=== PATIENT | female | born 1965 | race Hispanic/Latino ===

== ENCOUNTER 2018-05-13 17:23 | Emergency (ER) | payer MEDICAID, SELFPAY ==
--- NOTE | 2018-05-13 18:06 | RAD ---
LEFT KNEE FOUR VIEWS: 05/13/18 INDICATION: Posttraumatic pain. FINDINGS: There is soft tissue abnormality of the lateral aspect of the left knee. There is moderate joint caps ular distention. Mild cortical irregularity involves the posterior aspect of the distal femoral metap hyseal region not reliably depicted on the frontal projection. IMPRESSION: Soft tissue contusion, moderate joint capsular distention, and subtle cortical irregularity at the po sterior metaphyseal region of the distal femur indicative of posttraumatic sequela. POS: [facility]
--- NOTE | 2018-05-13 18:09 | RAD ---
RIGHT ANKLE THREE VIEWS: 05/13/18 INDICATION: Posttraumatic pain. FINDINGS: There is a minimally displaced medial malleolar fracture. Posterior malleolar fracture also seen. The re is soft tissue swelling greatest medially. Slight widening of the medial ankle mortise is present. IMPRESSION: Medial malleolar and posterior malleolar fractures with associated soft tissue swelling, and slight a symmetric widening of the medial ankle mortise. Recommend orthopedic consultation. POS: [facility]
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
== END 2018-05-13 19:05 | disposition home or self-care (01) ==
LOC: ERS 17:23
DX: S82.51XA Displaced fracture of medial malleolus of right tibia, initial encounter for closed fracture (principal); S86.912A Strain of unspecified muscle(s) and tendon(s) at lower leg level, left leg, initial encounter; S20.212A Contusion of left front wall of thorax, initial encounter; V43.52XA Car driver injured in collision with other type car in traffic accident, initial encounter
CPT/HCPCS: 71045; G0390

== ENCOUNTER 2020-04-24 06:20 | Inpatient (IN) | payer OTHER, SELFPAY ==
[2020-04-24 06:59] LABS: #Basophils 0.1 thou/uL (0.0-0.2); #Eosinphils 0.4 thou/uL (0.0-0.7); #Lymphocytes 2.8 thou/uL (1.20-3.40); #Monocytes 0.5 thou/uL (0.11-0.59); #Neutrophils 11.7 thou/uL (1.40-6.50); %Basophils 0.4 % (0.0-1.0); %Eosinophils 2.3 % (0.0-10.0); %Lymphocytes 17.9 % (21.0-51.0); %Monocytes 3.3 % (0.0-10.0); %Neutrophils 76.2 % (42.0-75.0); Hemoglobin 11.1 g/dL (12.0-16.0); Mean Corpuscular Hemoglobin 26.8 pg (27.0-31.0); Mean Corpuscular Volume 89.4 fL (78.0-98.0); Mean Platelet Volume 9.4 fL (7.4-10.4); Platelet Count 411 thou/uL (130-400); RBC Distribution Width 13.7 % (11.5-14.5); Red Blood Cell (RBC) Count 4.15 mill/uL (4.20-5.40); White Blood Cell (WBC) Count 15.4 thou/uL (4.8-10.8)
[2020-04-24 07:13] LABS: Actual Bicarbonate (HCO3a) 28.6 mEq/L (22-28); Analyzer IN Cardio ER; Base Excess (BEa) 4.6 mEq/L (-2.0 to +3.0); CO2 Tension 40.3 mmHg (35.0-45.0); Calcium, Ionized (arterial) 1.08 mmol/L (1.12-1.30); Carboxyhemoglobin (COHb) 0.5 gm% (0.0-3.0); Hemoglobin (Hb) 11.4 g/dL (12.0-16.0); O2 Tension (PaO2), arterial 89.2 mmHg (80.0-100.0); Potassium - ABG Lab 2.97 mmol/L (3.70-5.30); pH, Arterial 7.47 (7.35-7.45)
[2020-04-24 07:20] LABS: ALV-art Gradient 573.425 (0-20); Puncture Site LRA3
[2020-04-24 07:21] LABS: ALT (SGPT) 62 U/L (8-55); AST (SGOT) 69 U/L (5-34); Albumin 3.5 g/dL (3.5-5.0); Alkaline Phosphatase 178 U/L (40-110); Anion Gap 13 mmol/L (10-20); BUN (Urea Nitrogen) 14 mg/dL (9.8-20.1); Bilirubin, Total 0.9 mg/dL (0.2-1.2); Calc. Creatinine Clearance 0 mL/min (70-130); Carbon Dioxide 33 mmol/L (22-29); Chloride 96 mmol/L (98-107); Estimated GFR-MDRD 43; Globulin 4.3 g/dL (2.4-3.5); Glucose 128 mg/dL (70-105); Potassium 3.1 mmol/L (3.5-5.1); Protein, Total 7.8 g/dL (6.0-8.3); Sodium 139 mmol/L (136-145)
[2020-04-24 07:34] LABS: Platelet Morphology Comment Appears Increased; RBC Morphology Normal
--- NOTE | 2020-04-24 07:34 | RAD ---
EXAM: Single view of the chest HISTORY: Covid pneumonia COMPARISON: 05/13/2018 FINDINGS: Single view of the chest shows a normal sized cardiomediastinal silhouette. There are multi focal peripheral infiltrates in the lungs. No pleural effusion is seen. The bones are unremarkable IMPRESSION: Multifocal infiltrates are consistent with Covid pneumonia.
[2020-04-24] MEDS ORDERED: Potassium Chloride 20 MEQ TAB ONE (07:41)
[2020-04-24] MEDS ORDERED: Azithromycin 500 MG VIAL ONE (07:41)
[2020-04-24] MEDS ORDERED: cefTRIAXone\\ROCEPHIN 2 GM VIAL ONE (07:41)
[2020-04-24] MEDS ORDERED: Aspirin Chewable 81 MG TAB ONE (07:56)
[2020-04-24] MEDS ORDERED: Enoxaparin Sodium 40 MG/0.4 ML SYRINGE ONE (08:11)
[2020-04-24] MEDS ORDERED: Potassium Chloride 20 MEQ TAB PO SCH (09:15)
[2020-04-24 09:44] VITALS: BMI 33.9
[2020-04-24 10:43] LABS: Troponin I 0.058 ng/mL (< 0.028)
[2020-04-24] MEDS ORDERED: Guaifenesin DM 100-10/5 ML UDCUP PO PRN (10:43)
[2020-04-24] MEDS ORDERED: Ondansetron PF 4 MG/2 ML Vial IVP PRN (10:43)
[2020-04-24] MEDS ORDERED: Senokot S 8.6-50 MG TAB PO PRN ×2 (10:43→13:00)
[2020-04-24] MEDS ORDERED: Ondansetron ODT 4 MG TAB PO PRN (10:43)
[2020-04-24] MEDS ORDERED: Acetaminophen 650 MG Suppository PR PRN (10:43)
[2020-04-24] MEDS ORDERED: Calcium Carbonate 500 MG ChewTAB PO PRN (10:43)
[2020-04-24] MEDS ORDERED: Dexamethasone 4 mg/ml Vial SLOW IVP SCH (10:45)
[2020-04-24 11:09] LABS: Prothrombin Time 13.2 sec (12.0-14.7)
[2020-04-24 11:10] LABS: PTT 34.7 sec (22.9-36.1)
--- NOTE | 2020-04-24 11:18 | HP ---
PRIMARY CARE PHYSICIAN: None. CHIEF COMPLAINT: Shortness of breath and dyspnea. HISTORY OF PRESENT ILLNESS: The patient is a 54-year-old female with no significant past medical history, who presents to the ER for the above complaint. The patient reports experiencing increasing dyspnea and shortness of breath for past 1-2 weeks. She reports over the last 12 hours that her dyspnea has become severe, making it difficult to move around. She reports that she tested positive for COVID on 04/10 at an outpatient [facility]. She reports some associated chills and fevers. She did not check her temperature; however, she felt like she had a fever. She took aspirin and ibuprofen. She denies any associated cough or wheezing. She denies any chest pain or heart palpitations. She denies any abdominal pain, nausea, vomiting, or diarrhea. She denies any dysuria. For the aforementioned reasons, the patient came to the ER. In the ER, the patient was afebrile, stable blood pressure, and stable pulse. She was tachypneic, breathing 38 respirations per minute. She was 63% on room air. She was placed on a nonrebreather with improvement to 96% on the O2 saturation and respirations improved to 26 per minute. EKG, normal sinus rhythm, 52 beats per minute, no ST elevation. Initial troponin 0.050. BNP 147.4. Chest x-ray is positive for multifocal pneumonia, consistent with COVID. WBCs were 15.4, she did have lymphocytopenia. ABG; 7.47 was the pH, CO2 of 40, O2 was 89%, and bicarb was 28.6 on the nonrebreather. The patient was given azithromycin, Rocephin, low-dose Lovenox 40mg, 1 L of fluid, full-dose aspirin, and 40 mEq of potassium and will be admitted to the floor. PAST MEDICAL HISTORY: None. PAST SURGICAL HISTORY: None. PAST SOCIAL HISTORY: The patient lives with family at home. She has no smoking history, illicit drug use, or alcohol intake. FAMILY HISTORY: Noncontributory to this case. ALLERGIES: NO KNOWN DRUG ALLERGIES. HOME MEDICATIONS: None. REVIEW OF SYSTEMS: All review of systems are negative unless otherwise stated in the HPI. PHYSICAL EXAMINATION: VITAL SIGNS: Temperature 98.7, blood pressure 116/76, pulse 86, respirations 22 , 98% on a nonrebreather, and 0/10 pain. CONSTITUTIONAL: The patient is alert and oriented to person, place, and time. Appears mildly uncomfortable. She is in no acute respiratory distress. She is nontoxic in appearance. HEAD: Atraumatic and normocephalic. EYES: PERRLA. Extraocular muscles intact. Sclerae nonicteric. NECK: Full range of motion. No cervical spinous tenderness. No cervical adenopathy. No JVD. ENT: Bilateral EACs are clear. TMs are intact. Nares are patent. Oropharynx is clear. Uvula midline. Tacky mucous membranes. No oral lesions. RESPIRATORY/CHEST: Respirations are even and unlabored. Diffuse rhonchi throughout. CARDIOVASCULAR: S1 and S2 appreciated. No murmurs, rubs, or gallops. ABDOMEN: Soft, nontender, and nondistended. Active bowel sounds. No guarding. No rigidity. No rebound. Negative Rovsing sign. Negative Umaña sign. No abdominal bruit auscultated. BACK: Full range of motion. No central spinous tenderness. No CVA tenderness. EXTREMITIES: Upper extremities; full range of motion, normal strength, sensation intact, palpable radial pulses. Lower extremities; full range of motion, normal strength, sensation intact, palpable pedal pulses, no swelling. NEUROLOGIC: A and O x3. Moves all extremities well. No focal motor deficits. Normal gait. PSYCHIATRIC: Normal affect. A and O x3. Denies suicidal or homicidal ideation. DIAGNOSTIC STUDIES AND LABORATORY DATA: Chest x-ray was positive for multifocal infiltrates, consistent with COVID pneumonia. EKG, normal sinus rhythm, 52 beats per minute. Troponin 0.050, CK-MB 4.0, and BNP 147.4. ABG; pH 7.47, CO2 of 40, bicarb 20.6, and O2 of 89%. Sodium 139, potassium 3.1, chloride 96, carbon dioxide 33, BUN 14, creatinine 1.31, and glucose 128. Lactic acid 1.1. Total bilirubin 0.9, AST 69, ALT 62, and alkaline phosphatase 178. WBCs 15.4, hemoglobin 11.1, hematocrit 37.1, and platelets 411. IMPRESSION AND PLAN: 1. Acute hypoxic respiratory failure secondary to COVID pneumonia. We will admit the patient to the telemetry floor inpatient status. Expected length of stay greater than 2 midnights. The patient presented afebrile, tachypneic, and hypoxic, was placed on a non-rebreather with significant improvement in symptoms. We will continue azithromycin and Rocephin. We will start 1 mg/kg LMWH for deep vein thrombosis prophylaxis. We will start dexamethasone daily. We will consult Dr. Richards with Infectious Disease. We will check acute phase reactants and obtain a PT/INR. 2. COVID-19. The patient is positive on 04/10 in the outpatient setting with worsening symptoms over the past [address] the patient on droplet precautions. We will continue IV steroids and antibiotics, LMWH and consult Dr. Richards. 3. Elevated troponin. The patient presented with elevated troponin of 0.050. She has no cardiovascular risk factors, likely strain from COVID pneumonia. We will trend troponins. We will continue aspirin. 4. Hypokalemia. The patient presented with a 3.1 potassium level. We will check a magnesium level. The patient received 40 mEq in the ER. We will recheck level in a.m. 5. Transaminitis. The patient has a normal bilirubin. She denies any abdominal symptomatology. We will recheck in the a.m. 6. Lovenox 1 mg/kg for deep venous thrombosis prophylaxis. Pepcid for gastrointestinal prophylaxis. The patient is full code. Her contact is her daughter, Marina, [phone]. 7. Discussed the case with Dr. Herrera. Job ID: [id number] MTDD
[2020-04-24] MEDS ORDERED: Dexamethasone 10 MG/ML VIAL ONE (11:19)
[2020-04-24 11:26] LABS: D-Dimer Test 17.41 *mcg/mL (0.27-0.43)
[2020-04-24 11:44] LABS: Ferritin 133.04 ng/mL (10-291); Thyroid Stimulating Hormone 71.4699 uIU/mL (0.35-4.94)
[2020-04-24] MEDS ORDERED: Enoxaparin Sodium 40 MG/0.4 ML SYRINGE SC SCH (12:00)
[2020-04-24 12:39] LABS: Troponin I 0.069 ng/mL (< 0.028)
[2020-04-24 16:30] LABS: Hemoglobin 10.7 g/dL (12.0-16.0); Platelet Count 383 thou/uL (130-400)
[2020-04-24] MEDS ORDERED: Levothyroxine Sodium 50 MCG TAB PO SCH (19:15)
[2020-04-24] MEDS: Enoxaparin Sodium 100 MG/ML SYRINGE SC SCH (20:07)
[2020-04-24] MEDS: Famotidine 20 MG TAB PO SCH (20:08)
[2020-04-24] MEDS: Famotidine/PF 20 mg/2ml Vial SLOW IVP SCH (20:09)
--- NOTE | 2020-04-25 00:01 | CON ---
DATE OF CONSULTATION: 04/24/2020 REASON FOR CONSULTATION: COVID infection. HISTORY OF PRESENT ILLNESS: A 54-year-old with history of progressively worsening dyspnea for the past 2 weeks. She tested positive for COVID two weeks ago. The reason for testing at that time was because of exposure. She was not having symptoms and now is having worsening shortness of breath with desaturation. She coughs frequently. She is able to eat and does not have abnormal taste or sense of smell. No chest pain, abdominal pain, or diarrhea. No genitourinary symptoms. No neurological symptoms. PAST MEDICAL HISTORY: Negative. PAST SURGICAL HISTORY: No surgical history. SOCIAL HISTORY: Never smoker. ALLERGIES: NONE. CURRENT MEDICATIONS: 1. Azithromycin. 2. Ceftriaxone. 3. Decadron. 4. Other p.r.n. medications. FAMILY HISTORY: Noncontributory except for COVID in family members. PHYSICAL EXAMINATION: VITAL SIGNS: Temperature 98.3, respiratory rate 19, and O2 saturations are 97 on high-flow nasal cannula O2. HEENT: Ocular movements conjugate. Oral cavity normal. NECK: Supple. LUNGS: Bilateral symmetric air entry with few crackles at the bases. HEART: S1 and S2. Regular rate. No S3 or S4. ABDOMEN: Soft, not distended or tender. No ascites. No bladder distention. EXTREMITIES: No joint inflammatory activity. Moves extremities equally. NEUROLOGIC: Her cognitive function appears to be intact. LABORATORY DATA: White cell count 15.4, hemoglobin 11, platelets 411, and 76% neutrophils. INR 1.0. A pH of 7.47, pCO2 of 40, and pO2 of 89. Troponin 0.058. TSH 71. Ferritin was 133 and CRP is 30. Creatinine is 1.31. Chest x-ray, bilateral diffuse pulmonary infiltrates, quite prominent. ASSESSMENT AND PLAN: No past medical history, now with COVID infection, quite severe. She is on high-flow nasal cannula. Latest NIH guidelines recommend against using Remdesivir in the patient's with more severe COVID infection due to some questions regarding the efficacy in those circumstances, so I am going to write for convalescent plasma. Continue Decadron and I will probably recommend discontinuation of antimicrobials in the next few days, enoxaparin as part of the treatment plan and monitor inflammatory markers daily as well as D-dimer. Job ID: [id number]
[2020-04-25] MEDS: Acetaminophen 325 MG TAB PO PRN ×2 (00:54→21:01)
[2020-04-25] MEDS: Levothyroxine Sodium 50 MCG TAB PO SCH (04:13)
[2020-04-25 05:01] LABS: ALT (SGPT) 41 U/L (8-55); AST (SGOT) 35 U/L (5-34); Albumin 3.1 g/dL (3.5-5.0); Alkaline Phosphatase 154 U/L (40-110); Anion Gap 14 mmol/L (10-20); BUN (Urea Nitrogen) 12 mg/dL (9.8-20.1); Bilirubin, Total 0.6 mg/dL (0.2-1.2); Calc. Creatinine Clearance 101 mL/min (70-130); Calcium 8.3 mg/dL (7.8-10.44); Carbon Dioxide 29 mmol/L (22-29); Chloride 99 mmol/L (98-107); Estimated GFR-MDRD 60; Globulin 3.8 g/dL (2.4-3.5); Glucose 114 mg/dL (70-105); Potassium 3.5 mmol/L (3.5-5.1); Protein, Total 6.9 g/dL (6.0-8.3); Sodium 138 mmol/L (136-145)
[2020-04-25 05:06] LABS: #Eosinphils 0.1 thou/uL (0.0-0.7); #Lymphocytes 1.5 thou/uL (1.20-3.40); #Monocytes 0.4 thou/uL (0.11-0.59); #Neutrophils 8.2 thou/uL (1.40-6.50); %Basophils 0.2 % (0.0-1.0); %Eosinophils 0.8 % (0.0-10.0); %Lymphocytes 14.7 % (21.0-51.0); %Monocytes 3.5 % (0.0-10.0); %Neutrophils 80.8 % (42.0-75.0); Hemoglobin 9.9 g/dL (12.0-16.0); Mean Corpuscular Hemoglobin 27.9 pg (27.0-31.0); Mean Platelet Volume 9.5 fL (7.4-10.4); Platelet Count 379 thou/uL (130-400); RBC Distribution Width 13.6 % (11.5-14.5); Red Blood Cell (RBC) Count 3.53 mill/uL (4.20-5.40); White Blood Cell (WBC) Count 10.1 thou/uL (4.8-10.8)
[2020-04-25] MEDS ORDERED: cefTRIAXone\\ROCEPHIN 2 GM in Sodium Chloride 0.9% 100 ML IVPB SCH (08:00)
[2020-04-25] MEDS ORDERED: Azithromycin 500 MG in Sodium Chloride 0.9% 250 ML 250 ML IVPB SCH (08:00)
[2020-04-25] MEDS: Enoxaparin Sodium 100 MG/ML SYRINGE SC SCH ×2 (08:07→20:51)
[2020-04-25] MEDS: Famotidine/PF 20 mg/2ml Vial SLOW IVP SCH ×2 (08:08→20:52)
[2020-04-25] MEDS: Aspirin 81 mg Enteric Coated Tablet PO SCH (08:08)
[2020-04-25] MEDS: Famotidine 20 MG TAB PO SCH ×2 (08:08→20:51)
[2020-04-25] MEDS: Dexamethasone 4 mg/ml Vial SLOW IVP SCH (08:08)
--- NOTE | 2020-04-25 15:08 | PRG ---
DATE OF SERVICE: 04/25/2020 SUBJECTIVE: Ms. Killian does not appear in distress. She cooperates with the exam. Oriented. Little bit of cough. No vomiting. No diarrhea. No abdominal pain. OBJECTIVE: VITAL SIGNS: She has been afebrile, BP 140/90, pulse 72, respirations 17, and O2 saturation 96, still on high-flow O2 at 30 L a minute. LUNGS: Symmetric air entry. HEART: S1 and S2. Regular rate. ABDOMEN: Soft, not distended. EXTREMITIES: Moves all extremities equally. LABORATORY DATA: White cell count down to 10.1, hemoglobin 9.9, and platelets 379 with 80% neutrophils. D-dimer is stable at 17.65. Ferritin is down to 104. CRP is down to 24 from 30. Blood cultures, no growth. ASSESSMENT AND DISCUSSION: No past medical history, now with COVID infection, severe, on high-flow nasal cannula, so she received convalescent plasma instead of remdesivir. Continues on Decadron. We will go ahead and discontinue antimicrobials. Job ID: [id number]
--- NOTE | 2020-04-25 18:27 | PDOC.HOSPP ---
- Subjective Encounter Date: 04/25/20 Encounter Time: 10:15 Subjective: pt up in bed on high flow - Objective Vital Signs & Weight: Vital Signs (12 hours) Temp Pulse Pulse Pulse Resp BP BP 04/25/20 15:49 96.9 F L 77 17 04/25/20 13:10 84 82 143/90 H 165/101 H 04/25/20 12:00 97.5 F L 72 17 04/25/20 08:00 97.9 F 75 18 BP Pulse Ox Pulse Ox Pulse Ox 04/25/20 15:49 129/85 94 L 04/25/20 13:10 90 L 88 L 04/25/20 12:00 140/75 96 04/25/20 08:00 147/62 H 95 Weight Admit Weight 210 lb Weight 210 lb I&O: 04/24/20 04/25/20 04/26/20 06:59 06:59 06:59 Intake Total 600 830 Output Total 200 500 Balance 400 330 Result Diagrams: 04/25/20 04:23 04/25/20 04:23 Hospitalist ROS - Review of Systems Respiratory: reports: shortness of breath Cardiovascular: denies: chest pain, palpitations, orthopnea, paroxysmal noc. dyspnea, edema, light headedness, other Gastrointestinal: denies: nausea, vomiting, abdominal pain, diarrhea, constipation, melena, hematochezia, other Genitourinary: denies: dysuria, frequency, incontinence, hematuria, retention, other - Medication Medications: Active Medications Generic Name Dose Route Start Last Admin Trade Name Freq PRN Reason Stop Dose Admin Acetaminophen 650 mg 04/24/20 10:43 04/25/20 00:54 Tylenol PO 650 mg Q4H PRN Administration Headache/Fever/Mild Pain (1-3) Aspirin 81 mg 04/25/20 09:00 04/25/20 08:08 Ecotrin PO 81 mg DAILY INDY Administration Dexamethasone 6 mg 04/25/20 09:00 04/25/20 08:08 Decadron SLOW IVP 6 mg DAILY INDY Administration Enoxaparin Sodium 90 mg 04/24/20 21:00 04/25/20 08:07 Lovenox SC 90 mg 0900,2100 INDY Administration Famotidine 20 mg 04/24/20 21:00 04/25/20 08:08 Pepcid SLOW IVP 20 mg Q12HR INDY Administration Famotidine 20 mg 04/24/20 21:00 04/25/20 08:08 Pepcid PO 20 mg BID INDY Administration Levothyroxine Sodium 50 mcg 04/25/20 06:00 04/25/20 04:13 Synthroid PO 50 mcg 0600 INDY Administration Sodium Chloride 10 ml 04/24/20 21:00 04/25/20 08:11 Flush - Normal Saline IVF 10 ml Q12HR INDY Administration - Exam Heart: negative: RRR, no murmur, no gallops, no rubs, normal peripheral pulses, irregular, diminshed peripheral pulses, murmur present, II/IV, III/IV Respiratory: rales Gastrointestinal: negative: soft, non-tender, non-distended, normal bowel sounds , no palpable masses, no hepatomegaly, no splenomegaly, no bruit, no guarding, no rigidity, tender to palpation, distended, diminished bowl sounds, voluntary guarding Extremities: negative: no cyanosis, no clubbing, no edema, 1+ LE edema, 2+ LE edema, clubbing Hosp A/P (1) Acute and chronic respiratory failure with hypoxia Code(s): J96.21 - ACUTE AND CHRONIC RESPIRATORY FAILURE WITH HYPOXIA Status: Acute (2) COVID-19 Code(s): U07.1 - COVID-19 Status: Acute - Plan pt on high flow will continue steroids. abx have been discontinued.
[2020-04-26] MEDS: Levothyroxine Sodium 50 MCG TAB PO SCH (05:10)
[2020-04-26] MEDS: Dexamethasone 4 mg/ml Vial SLOW IVP SCH (07:44)
[2020-04-26] MEDS: Enoxaparin Sodium 100 MG/ML SYRINGE SC SCH ×2 (07:44→21:01)
[2020-04-26] MEDS: Famotidine 20 MG TAB PO SCH ×2 (07:44→21:02)
[2020-04-26] MEDS: Aspirin 81 mg Enteric Coated Tablet PO SCH (07:44)
[2020-04-26] MEDS: Famotidine/PF 20 mg/2ml Vial SLOW IVP SCH ×2 (07:45→21:02)
[2020-04-26] MEDS ORDERED: cefTRIAXone\\ROCEPHIN 2 GM in Sodium Chloride 0.9% 100 ML IVPB SCH (09:00)
--- NOTE | 2020-04-26 17:11 | PDOC.HOSPP ---
- Subjective Encounter Date: 04/26/20 Encounter Time: 12:45 Subjective: pt up in chair feels much better - Objective Vital Signs & Weight: Vital Signs (12 hours) Temp Pulse Resp BP Pulse Ox Pulse Ox 04/26/20 15:47 95 04/26/20 11:40 97.8 F 80 20 145/89 H 94 L 04/26/20 07:50 97.7 F 64 22 H 132/80 92 L Weight Admit Weight 210 lb Weight 210 lb I&O: 04/25/20 04/26/20 04/27/20 06:59 06:59 06:59 Intake Total 600 1640 Output Total 200 1400 Balance 400 240 Result Diagrams: 04/25/20 04:23 04/25/20 04:23 Hospitalist ROS - Review of Systems Cardiovascular: denies: chest pain, palpitations, orthopnea, paroxysmal noc. dyspnea, edema, light headedness, other Gastrointestinal: denies: nausea, vomiting, abdominal pain, diarrhea, constipation, melena, hematochezia, other Genitourinary: denies: dysuria, frequency, incontinence, hematuria, retention, other - Medication Medications: Active Medications Generic Name Dose Route Start Last Admin Trade Name Freq PRN Reason Stop Dose Admin Acetaminophen 650 mg 04/24/20 10:43 04/25/20 21:01 Tylenol PO 650 mg Q4H PRN Administration Headache/Fever/Mild Pain (1-3) Aspirin 81 mg 04/25/20 09:00 04/26/20 07:44 Ecotrin PO 81 mg DAILY INDY Administration Dexamethasone 6 mg 04/25/20 09:00 04/26/20 07:44 Decadron SLOW IVP 6 mg DAILY INDY Administration Enoxaparin Sodium 90 mg 04/24/20 21:00 04/26/20 07:44 Lovenox SC 90 mg 0900,2100 INDY Administration Famotidine 20 mg 04/24/20 21:00 04/26/20 07:45 Pepcid SLOW IVP Not Given Q12HR INDY Famotidine 20 mg 04/24/20 21:00 04/26/20 07:44 Pepcid PO 20 mg BID INDY Administration Levothyroxine Sodium 50 mcg 04/25/20 06:00 04/26/20 05:10 Synthroid PO 50 mcg 0600 INDY Administration Sodium Chloride 10 ml 04/24/20 21:00 04/26/20 07:45 Flush - Normal Saline IVF 10 ml Q12HR INDY Administration - Exam Neck: negative: supple, symmetric, no JVD, no thyromegaly, no lymphadenopathy, no carotid bruit, JVD Heart: negative: RRR, no murmur, no gallops, no rubs, normal peripheral pulses, irregular, diminshed peripheral pulses, murmur present, II/IV, III/IV Respiratory: rhonchi Gastrointestinal: negative: soft, non-tender, non-distended, normal bowel sounds , no palpable masses, no hepatomegaly, no splenomegaly, no bruit, no guarding, no rigidity, tender to palpation, distended, diminished bowl sounds, voluntary guarding Hosp A/P (1) Acute and chronic respiratory failure with hypoxia Code(s): J96.21 - ACUTE AND CHRONIC RESPIRATORY FAILURE WITH HYPOXIA Status: Acute (2) COVID-19 Code(s): U07.1 - COVID-19 Status: Acute - Plan pt on high flow will continue steroids. abx have been discontinued. 04/26 pt is still on high flow. will try to wean her down. she is more mobile. steroids started on 03/26 pt on full dose AC. will check cbc and cmp in am.
[2020-04-27] MEDS: Levothyroxine Sodium 50 MCG TAB PO SCH (05:06)
[2020-04-27 05:35] LABS: #Eosinphils 0.2 thou/uL (0.0-0.7); #Lymphocytes 1.9 thou/uL (1.20-3.40); #Monocytes 0.5 thou/uL (0.11-0.59); #Neutrophils 9.2 thou/uL (1.40-6.50); %Basophils 0.1 % (0.0-1.0); %Eosinophils 1.6 % (0.0-10.0); %Lymphocytes 16.1 % (21.0-51.0); %Monocytes 3.9 % (0.0-10.0); %Neutrophils 78.2 % (42.0-75.0); Hemoglobin 10.1 g/dL (12.0-16.0); Mean Corpuscular HGB CONC 31.2 g/dL (32.0-36.0); Mean Corpuscular Hemoglobin 28.3 pg (27.0-31.0); Mean Corpuscular Volume 90.6 fL (78.0-98.0); Mean Platelet Volume 9.3 fL (7.4-10.4); Platelet Count 407 thou/uL (130-400); RBC Distribution Width 13.8 % (11.5-14.5); Red Blood Cell (RBC) Count 3.58 mill/uL (4.20-5.40); White Blood Cell (WBC) Count 11.7 thou/uL (4.8-10.8)
[2020-04-27 05:55] LABS: ALT (SGPT) 28 U/L (8-55); AST (SGOT) 29 U/L (5-34); Albumin 3.1 g/dL (3.5-5.0); Alkaline Phosphatase 138 U/L (40-110); Anion Gap 10 mmol/L (10-20); BUN (Urea Nitrogen) 13 mg/dL (9.8-20.1); Bilirubin, Total 0.5 mg/dL (0.2-1.2); CRP (Inflammatory) 8.59 mg/dL (= or < 0.5); Calc. Creatinine Clearance 105 mL/min (70-130); Calcium 8.3 mg/dL (7.8-10.44); Carbon Dioxide 32 mmol/L (22-29); Chloride 102 mmol/L (98-107); Estimated GFR-MDRD 63; Globulin 3.6 g/dL (2.4-3.5); Glucose 84 mg/dL (70-105); Potassium 3.2 mmol/L (3.5-5.1); Protein, Total 6.7 g/dL (6.0-8.3); Sodium 141 mmol/L (136-145)
[2020-04-27] MEDS ORDERED: Potassium Chloride 20 MEQ TAB PO SCH ×2 (08:15→14:15)
[2020-04-27] MEDS: Famotidine 20 MG TAB PO SCH ×2 (09:26→20:14)
[2020-04-27] MEDS: Apixaban 5 MG TAB PO SCH ×2 (09:26→20:14)
[2020-04-27] MEDS: Aspirin 81 mg Enteric Coated Tablet PO SCH (09:26)
[2020-04-27] MEDS: Dexamethasone 4 mg/ml Vial SLOW IVP SCH (09:27)
--- NOTE | 2020-04-27 13:57 | PDOC.HOSPP ---
- Subjective Encounter Date: 04/27/20 Encounter Time: 11:15 Subjective: pt up in bed states she feels well - Objective Vital Signs & Weight: Vital Signs (12 hours) Temp Pulse Resp BP Pulse Ox 04/27/20 12:00 97.7 F 78 24 H 139/96 H 94 L 04/27/20 08:45 97 04/27/20 08:30 98.0 F 66 24 H 131/81 90 L 04/27/20 06:05 95 04/27/20 04:00 98.9 F 73 20 139/82 95 Weight Admit Weight 210 lb Weight 210 lb I&O: 04/26/20 04/27/20 04/28/20 06:59 06:59 06:59 Intake Total 1640 2060 Output Total 1400 Balance 240 2059 Result Diagrams: 04/27/20 05:00 04/27/20 05:00 Hospitalist ROS - Review of Systems Cardiovascular: denies: chest pain, palpitations, orthopnea, paroxysmal noc. dyspnea, edema, light headedness, other Gastrointestinal: denies: nausea, vomiting, abdominal pain, diarrhea, constipation, melena, hematochezia, other Genitourinary: denies: dysuria, frequency, incontinence, hematuria, retention, other - Medication Medications: Active Medications Generic Name Dose Route Start Last Admin Trade Name Philipq PRN Reason Stop Dose Admin Acetaminophen 650 mg 04/24/20 10:43 04/25/20 21:01 Tylenol PO 650 mg Q4H PRN Administration Headache/Fever/Mild Pain (1-3) Apixaban 5 mg 04/27/20 09:00 04/27/20 09:26 Eliquis PO 5 mg BID INDY Administration Aspirin 81 mg 04/25/20 09:00 04/27/20 09:26 Ecotrin PO 81 mg DAILY INDY Administration Dexamethasone 6 mg 04/25/20 09:00 04/27/20 09:27 Decadron SLOW IVP 6 mg DAILY INDY Administration Famotidine 20 mg 04/24/20 21:00 04/27/20 09:26 Pepcid PO 20 mg BID INDY Administration Levothyroxine Sodium 50 mcg 04/25/20 06:00 04/27/20 05:06 Synthroid PO 50 mcg 0600 INDY Administration Sodium Chloride 10 ml 04/24/20 21:00 07/30/20 21:02 Flush - Normal Saline IVF 10 ml Q12HR INDY Administration - Exam Neck: negative: supple, symmetric, no JVD, no thyromegaly, no lymphadenopathy, no carotid bruit, JVD Heart: negative: RRR, no murmur, no gallops, no rubs, normal peripheral pulses, irregular, diminshed peripheral pulses, murmur present, II/IV, III/IV Respiratory: negative: CTAB, no wheezes, no rales, no ronchi, normal chest expansion, no tachypnea, normal percussion, rales, rhonchi, tachypneic, wheezes Gastrointestinal: negative: soft, non-tender, non-distended, normal bowel sounds , no palpable masses, no hepatomegaly, no splenomegaly, no bruit, no guarding, no rigidity, tender to palpation, distended, diminished bowl sounds, voluntary guarding Hosp A/P (1) Acute and chronic respiratory failure with hypoxia Code(s): J96.21 - ACUTE AND CHRONIC RESPIRATORY FAILURE WITH HYPOXIA Status: Acute (2) COVID-19 Code(s): U07.1 - COVID-19 Status: Acute (3) Elevated troponin Code(s): R79.89 - OTHER SPECIFIED ABNORMAL FINDINGS OF BLOOD CHEMISTRY Status : Acute - Plan pt on high flow will continue steroids. abx have been discontinued. 04/26 pt is still on high flow. will try to wean her down. she is more mobile. steroids started on 03/26 pt on full dose AC. will check cbc and cmp in am. 04/27 spoke with nursing staff about weaning her high flow pt overall feels well but her oxygen sat have been in the 90's and her high flow had to be increased to 45L and fio of 76%. will change her Lovenox to eliquis. Her inflammatory markers are improving. Her trops are elevated. she has no chest pain. even if we order echo it will not be done.
[2020-04-27 15:03] LABS: Hemoglobin 11.1 g/dL (12.0-16.0); Platelet Count 432 thou/uL (130-400)
[2020-04-27] MEDS: Acetaminophen 325 MG TAB PO PRN (18:49)
[2020-04-28] MEDS: Levothyroxine Sodium 50 MCG TAB PO SCH (04:58)
[2020-04-28] MEDS: Dexamethasone 4 mg/ml Vial SLOW IVP SCH (09:22)
[2020-04-28] MEDS: Aspirin 81 mg Enteric Coated Tablet PO SCH (09:25)
[2020-04-28] MEDS: Enoxaparin Sodium 30 MG/0.3 ML SYRINGE SC SCH (09:25)
[2020-04-28] MEDS: Famotidine 20 MG TAB PO SCH ×2 (09:25→19:59)
--- NOTE | 2020-04-28 21:09 | PDOC.HOSPP ---
- Subjective Encounter Date: 04/28/20 Encounter Time: 09:00 Subjective: no overnight events. this morning, breathig is better. has no complaints. - Objective Vital Signs & Weight: Vital Signs (12 hours) Temp Pulse Resp BP Pulse Ox Pulse Ox Pulse Ox 04/28/20 20:00 98.5 F 72 20 141/87 H 96 04/28/20 18:00 98.5 F 65 20 150/83 H 99 04/28/20 12:00 98.4 F 69 20 154/92 H 95 04/28/20 09:31 78 L 94 L Weight Admit Weight 210 lb Weight 210 lb I&O: 04/27/20 04/28/20 04/29/20 06:59 06:59 06:59 Intake Total 2059 660 Balance 2059 660 Result Diagrams: 04/27/20 14:48 04/27/20 05:00 Hospitalist ROS - Review of Systems Constitutional: denies: chills, sweats Respiratory: denies: cough, dry, shortness of breath Cardiovascular: denies: chest pain, palpitations Gastrointestinal: denies: nausea, vomiting - Medication Medications: Active Medications Generic Name Dose Route Start Last Admin Trade Name Freq PRN Reason Stop Dose Admin Acetaminophen 650 mg 04/24/20 10:43 04/27/20 18:49 Tylenol PO 650 mg Q4H PRN Administration Headache/Fever/Mild Pain (1-3) Aspirin 81 mg 04/25/20 09:00 04/28/20 09:25 Ecotrin PO 81 mg DAILY INDY Administration Dexamethasone 6 mg 04/25/20 09:00 04/28/20 09:22 Decadron SLOW IVP 6 mg DAILY INDY Administration Enoxaparin Sodium 30 mg 04/28/20 09:00 04/28/20 09:25 Lovenox SC 30 mg 0900 INDY Administration Famotidine 20 mg 04/24/20 21:00 04/28/20 19:59 Pepcid PO 20 mg BID INDY Administration Levothyroxine Sodium 50 mcg 04/25/20 06:00 04/28/20 04:58 Synthroid PO 50 mcg 0600 INDY Administration Sodium Chloride 10 ml 04/24/20 21:00 04/28/20 19:59 Flush - Normal Saline IVF 10 ml Q12HR INDY Administration - Exam General Appearance: NAD, awake alert Neck: no JVD Heart: RRR, no murmur, no gallops, no rubs Respiratory: CTAB, no wheezes, no rales, no ronchi Gastrointestinal: soft, non-tender, non-distended, normal bowel sounds Extremities: no edema Psychiatric: normal affect, normal behavior, A&O x 3 Hosp A/P - Plan #COVID pneumonia clinically improving, inflammatory markers down remains on HFNC -titrate down HFNC as tolerated -continue decadron ELOS: 2-3 nights; CM requested to start process of obtaining home oxygen. patient has no insurance
[2020-04-29] MEDS: Levothyroxine Sodium 50 MCG TAB PO SCH (05:04)
[2020-04-29 05:24] LABS: #Eosinphils 0.1 thou/uL (0.0-0.7); #Lymphocytes 1.9 thou/uL (1.20-3.40); #Monocytes 0.6 thou/uL (0.11-0.59); #Neutrophils 7.9 thou/uL (1.40-6.50); %Basophils 0.2 % (0.0-1.0); %Eosinophils 1.3 % (0.0-10.0); %Lymphocytes 17.9 % (21.0-51.0); %Monocytes 5.4 % (0.0-10.0); %Neutrophils 75.2 % (42.0-75.0); Hemoglobin 9.9 g/dL (12.0-16.0); Mean Corpuscular HGB CONC 31.3 g/dL (32.0-36.0); Mean Corpuscular Volume 89.5 fL (78.0-98.0); Mean Platelet Volume 9.3 fL (7.4-10.4); Platelet Count 381 thou/uL (130-400); RBC Distribution Width 13.8 % (11.5-14.5); Red Blood Cell (RBC) Count 3.54 mill/uL (4.20-5.40); White Blood Cell (WBC) Count 10.6 thou/uL (4.8-10.8)
[2020-04-29 05:58] LABS: ALT (SGPT) 50 U/L (8-55); AST (SGOT) 41 U/L (5-34); Albumin 3.2 g/dL (3.5-5.0); Alkaline Phosphatase 145 U/L (40-110); Anion Gap 9 mmol/L (10-20); BUN (Urea Nitrogen) 13 mg/dL (9.8-20.1); Bilirubin, Total 0.5 mg/dL (0.2-1.2); CRP (Inflammatory) 4.45 mg/dL (= or < 0.5); Calc. Creatinine Clearance 110 mL/min (70-130); Calcium 8.8 mg/dL (7.8-10.44); Carbon Dioxide 32 mmol/L (22-29); Chloride 103 mmol/L (98-107); Estimated GFR-MDRD 66; Globulin 3.3 g/dL (2.4-3.5); Glucose 89 mg/dL (70-105); Protein, Total 6.5 g/dL (6.0-8.3); Sodium 140 mmol/L (136-145)
[2020-04-29] MEDS: Enoxaparin Sodium 30 MG/0.3 ML SYRINGE SC SCH (09:02)
[2020-04-29] MEDS: Famotidine 20 MG TAB PO SCH ×2 (09:02→19:53)
[2020-04-29] MEDS: Dexamethasone 4 mg/ml Vial SLOW IVP SCH (09:02)
[2020-04-29] MEDS: Aspirin 81 mg Enteric Coated Tablet PO SCH (09:02)
--- NOTE | 2020-04-29 15:12 | PDOC.HOSPP ---
- Subjective Encounter Date: 04/29/20 Encounter Time: 09:00 Subjective: no overnight events. This morning, feeling well, breathing is improved. has no complaints. Will continue to attempt to wean down HFNC - Objective Vital Signs & Weight: Vital Signs (12 hours) Temp Pulse Resp BP Pulse Ox 04/29/20 13:28 99 04/29/20 12:00 99 F 65 20 142/89 H 100 04/29/20 09:02 98.4 F 65 20 138/86 94 L 04/29/20 04:00 98.7 F 70 18 136/79 96 Weight Admit Weight 210 lb Weight 210 lb I&O: 04/28/20 04/29/20 04/30/20 06:59 06:59 06:59 Intake Total 660 820 Balance 660 820 Result Diagrams: 04/29/20 05:11 04/29/20 05:11 Hospitalist ROS - Review of Systems Constitutional: denies: chills, sweats Respiratory: denies: cough, dry, shortness of breath Cardiovascular: denies: chest pain, palpitations, orthopnea Gastrointestinal: denies: nausea, vomiting, abdominal pain Genitourinary: denies: dysuria, frequency, hematuria - Medication Medications: Active Medications Generic Name Dose Route Start Last Admin Trade Name Freq PRN Reason Stop Dose Admin Acetaminophen 650 mg 04/24/20 10:43 04/27/20 18:49 Tylenol PO 650 mg Q4H PRN Administration Headache/Fever/Mild Pain (1-3) Aspirin 81 mg 04/25/20 09:00 04/29/20 09:02 Ecotrin PO 81 mg DAILY INDY Administration Dexamethasone 6 mg 04/25/20 09:00 04/29/20 09:02 Decadron SLOW IVP 6 mg DAILY INDY Administration Enoxaparin Sodium 30 mg 04/28/20 09:00 04/29/20 09:02 Lovenox SC 30 mg 0900 INDY Administration Famotidine 20 mg 04/24/20 21:00 04/29/20 09:02 Pepcid PO 20 mg BID INDY Administration Levothyroxine Sodium 50 mcg 04/25/20 06:00 04/29/20 05:04 Synthroid PO 50 mcg 0600 INDY Administration Sodium Chloride 10 ml 04/24/20 21:00 04/29/20 09:01 Flush - Normal Saline IVF 10 ml Q12HR INDY Administration - Exam General Appearance: NAD, awake alert Neck: no JVD Heart: RRR, no murmur, no gallops, no rubs Respiratory: CTAB, no wheezes, no rales, no ronchi Gastrointestinal: soft, non-tender, non-distended, normal bowel sounds Extremities: no edema Psychiatric: normal affect, normal behavior, A&O x 3 Hosp A/P - Plan #COVID pneumonia clinically improving, inflammatory markers down remains on HFNC, oxygen demans reduced -titrate down HFNC as tolerated; keep oxygen > 92% -continue decadron ELOS: 2-3 nights; CM requested to start process of obtaining home oxygen. patient has no insurance
[2020-04-29] MEDS: Acetaminophen 325 MG TAB PO PRN (23:12)
[2020-04-30] MEDS: Levothyroxine Sodium 50 MCG TAB PO SCH (05:03)
[2020-04-30] MEDS: Aspirin 81 mg Enteric Coated Tablet PO SCH (08:01)
[2020-04-30] MEDS: Enoxaparin Sodium 30 MG/0.3 ML SYRINGE SC SCH (08:01)
[2020-04-30] MEDS: Famotidine 20 MG TAB PO SCH ×2 (08:01→20:06)
[2020-04-30] MEDS: Dexamethasone 4 mg/ml Vial SLOW IVP SCH (08:02)
--- NOTE | 2020-04-30 15:37 | PDOC.HOSPP ---
- Subjective Encounter Date: 04/30/20 Encounter Time: 08:00 Subjective: no overnight event. this morning, continues to improve. will attempt to wean down from HFNC to NC. - Objective Vital Signs & Weight: Vital Signs (12 hours) Temp Pulse Resp BP BP Pulse Ox 04/30/20 11:05 98.8 F 64 20 141/85 H 96 04/30/20 08:53 96 04/30/20 08:00 98.2 F 63 22 H 141/85 H 96 04/30/20 03:54 97.9 F 56 L 15 133/74 100 Weight Admit Weight 210 lb Weight 210 lb I&O: 04/29/20 04/30/20 05/01/20 06:59 06:59 06:59 Intake Total 820 1200 Output Total 800 Balance 820 400 Result Diagrams: 04/29/20 05:11 04/29/20 05:11 Hospitalist ROS - Review of Systems Constitutional: denies: fever, chills, sweats Respiratory: denies: cough, dry, shortness of breath Cardiovascular: denies: chest pain, palpitations, orthopnea Gastrointestinal: denies: nausea, vomiting, abdominal pain - Medication Medications: Active Medications Generic Name Dose Route Start Last Admin Trade Name Freq PRN Reason Stop Dose Admin Acetaminophen 650 mg 04/24/20 10:43 04/29/20 23:12 Tylenol PO 650 mg Q4H PRN Administration Headache/Fever/Mild Pain (1-3) Aspirin 81 mg 04/25/20 09:00 04/30/20 08:01 Ecotrin PO 81 mg DAILY INDY Administration Dexamethasone 6 mg 04/25/20 09:00 04/30/20 08:02 Decadron SLOW IVP 6 mg DAILY INDY Administration Enoxaparin Sodium 30 mg 04/28/20 09:00 04/30/20 08:01 Lovenox SC 30 mg 0900 INDY Administration Famotidine 20 mg 04/24/20 21:00 04/30/20 08:01 Pepcid PO 20 mg BID INDY Administration Levothyroxine Sodium 50 mcg 04/25/20 06:00 04/30/20 05:03 Synthroid PO 50 mcg 0600 INDY Administration Sodium Chloride 10 ml 04/24/20 21:00 04/30/20 08:02 Flush - Normal Saline IVF 10 ml Q12HR INDY Administration - Exam General Appearance: NAD, awake alert Neck: no JVD Heart: RRR, no murmur, no gallops, no rubs Respiratory: CTAB, no wheezes, no rales, no ronchi Gastrointestinal: soft, non-tender, non-distended, normal bowel sounds Extremities: no edema Psychiatric: normal affect, normal behavior, A&O x 3 Hosp A/P - Plan #COVID pneumonia clinically improving, inflammatory markers down remains on HFNC, oxygen demans reduced; will attempt to wean down to NC -continue decadron ELOS: 1 night, CM requested to start process of obtaining home oxygen. patient has no insurance
[2020-04-30] MEDS: Acetaminophen 325 MG TAB PO PRN (20:06)
[2020-05-01] MEDS: Levothyroxine Sodium 50 MCG TAB PO SCH (05:04)
[2020-05-01 06:47] VITALS: TEMP 98.2
[2020-05-01] MEDS: Famotidine 20 MG TAB PO SCH (08:37)
[2020-05-01] MEDS: Dexamethasone 4 mg/ml Vial SLOW IVP SCH (08:37)
[2020-05-01] MEDS: Enoxaparin Sodium 30 MG/0.3 ML SYRINGE SC SCH (08:37)
[2020-05-01] MEDS: Aspirin 81 mg Enteric Coated Tablet PO SCH (08:37)
[2020-05-01 16:37] VITALS: BP 130/80
--- NOTE | 2020-05-02 02:18 | DIS ---
DATE OF ADMISSION: 04/24/2020 DATE OF DISCHARGE: 05/01/2020 HOSPITAL COURSE: Ms. Killian is a 55-year-old female with no medical history, who presented with shortness of breath and dyspnea. She was previously diagnosed with COVID on April 10 and initially improved. However, on the April 21, her symptoms worsened and she presented to the ED. As an inpatient, she was initially on high-flow nasal cannula, but with treatment with Decadron, her symptoms have improved. On the day of discharge, the patient was saturating 94% on room air, and breathing without tachypnea and without dyspnea. PHYSICAL EXAMINATION: VITAL SIGNS: Blood pressure 153/89, pulse 87, respiratory rate 18, and oxygen saturation 94% on room air. GENERAL APPEARANCE: Lying comfortably in bed. Awake and alert. HEENT: Normocephalic and atraumatic. NECK: No periauricular, postauricular, submandibular, posterior, or anterior neck lymphadenopathy. CARDIAC: Regular rate and rhythm. No murmurs, gallops, or rubs. LUNGS: Clear to auscultation bilaterally. No wheezing, rales, or rhonchi. ABDOMEN: Soft, nontender, and nondistended. Normal bowel sounds. EXTREMITIES: No edema. PSYCHIATRIC: Proper mood and affect. Alert and oriented x3. MEDICATION LIST: The patient was on no medications prior to admission and was discharged on no medications. Of note, the patient did not require additional isolation after discharge. Job ID: [id number]
== END 2020-05-01 18:44 | disposition home or self-care (01) | DRG 177 ==
LOC: ERS 06:20 → ERHOLD 08:22 → 2SW 15:34
PROVIDERS: ADMIT Internal Medicine; ATTEND Internal Medicine
PROC: 8E0ZXY6 Isolation (ICD-10-PCS; principal; 2020-04-24)
PROC: 30233L1 Transfusion of Nonautologous Fresh Plasma into Peripheral Vein, Percutaneous Approach (ICD-10-PCS; 2020-04-25)
PROC: 30233K1 Transfusion of Nonautologous Frozen Plasma into Peripheral Vein, Percutaneous Approach (ICD-10-PCS; 2020-04-25)
DX: U07.1 COVID-19 (principal); J12.89 Other viral pneumonia; J96.01 Acute respiratory failure with hypoxia; E87.6 Hypokalemia
CPT/HCPCS: 36415; 36430; 71045; 80053; 82533; 82553; 82728; 82805; 83605; 83735; 83880; 84439; 84443; 84484; 85014; 85018; 85025; 85049; 85379; 85610; 85730; 86140; 86850; 86900; 86901; 87040; 93005; 96365; 96367; 96372; J0456; J0696; J1100; J1650; J3490; J7050; S0028

== ENCOUNTER 2023-03-13 17:25 | Day surgery (SDC) | payer SELFPAY ==
[2023-03-13] MEDS ORDERED: Rocuronium Bromide 10 MG/ML (10ML VIAL) ONE (18:40)
[2023-03-13] MEDS ORDERED: Metoclopramide HCl 10 MG/2 ML VIAL ONE (18:40)
[2023-03-13] MEDS ORDERED: PHENYLEPHRINE-NS 100 MCG/ML 10 ML SYRINGE ONE (18:40)
[2023-03-13] MEDS ORDERED: Lidocaine 1% PF 5 ML VIAL ONE (18:40)
[2023-03-13] MEDS ORDERED: PROPOFOL 200 MG/20 ML VIAL ONE (18:40)
[2023-03-13] MEDS ORDERED: Dexamethasone 20 MG/5 ML VIAL ONE (18:40)
[2023-03-13] MEDS ORDERED: GLYCOPYRROLATE/PF 0.2 MG/ML VIAL ONE (18:40)
[2023-03-13] MEDS ORDERED: Ondansetron PF 4 MG/2 ML Vial ONE (18:40)
[2023-03-13] MEDS ORDERED: Succinylcholine 200 MG/10 ml SYRINGE FS ONE (18:40)
[2023-03-13] MEDS ORDERED: NEOSTIGMINE 3 MG/3 ML SYR 3 MG/3 ML SYRINGE ONE (18:40)
== END 2023-03-13 21:03 | disposition home or self-care (01) ==
LOC: SDC 17:25
PROVIDERS: ATTEND Surgery
PROC: 0FT44ZZ Resection of Gallbladder, Percutaneous Endoscopic Approach (ICD-10-PCS; principal; 2023-03-13)
PROC: BF522Z0 Other Imaging of Gallbladder using Fluorescing Agent, Intraoperative (ICD-10-PCS; principal; 2023-03-13)
DX: K80.10 Calculus of gallbladder with chronic cholecystitis without obstruction (principal)
CPT/HCPCS: 47532; 88304; C1889; J1100; J2405; J2704; J2765; J3490